=== PATIENT | female | born 1985 | race Caucasian/White ===

== ENCOUNTER → 2019-12-11 13:46 | Outpatient (CLI) | payer OTHER, SELFPAY ==
[2019-12-14 16:08] LABS: AFP, Serum 99.7 ng/mL (.); Estriol, Free 1.62 ng/mL (.); Inhibin A, Dimeric 74.73 pg/mL (.); Inhibin A, MoM 0.44 (.); Maternal Ethnicity Caucasian (.); Maternal Weight 147 lbs (.); Number of Fetuses No (.); OSBR Risk 1 IN 144 (.); Results Report (.); hCG, MoM 0.37 (.); hCG, Serum 14453 mIU/mL (.)
[2019-12-16 14:05] LABS: Test Results *Screen Positive* (.)
== END ==
PROVIDERS: Referring Provider Family Medicine; Visit Provider Family Medicine
DX: Z34.90 Encounter for supervision of normal pregnancy, unspecified, unspecified trimester (principal)
CPT/HCPCS: 36415; 82105; 82677; 84702; 86336

== ENCOUNTER → 2020-01-01 15:17 | Outpatient (CLI) | payer OTHER, SELFPAY ==
--- NOTE | 2020-01-01 15:19 | DI.US.S_ITS ---
PROCEDURE: US OB >= 14 WEEKS FETUS INDICATIONS: ANATOMIC SURVEY OUTSIDE/PRIOR DATING DATA: Last menstrual period (LMP): 07/29/2019 LMP-based estimated date of delivery (MARILY): 05/24/2020 First dating scan (date and location): 01/01/2020 Estimated date of delivery (MARILY) from first dating scan: 05/19/2020 TECHNIQUE: Real-time scanning was performed of the fetus, with image documentation and biometric measurements. Endovaginal scanning: Not performed COMPARISON: None. FINDINGS: General: A single living intrauterine gestation is present. Presentation: Breech. Placenta: Placental position is 11.6, without previa. Amniotic fluid index: 11.6 cm, normal range is 5-24 cm. heart rate: 152 beats per minute. Maternal cervical canal: 4.4 cm long. Normal lower limit is 2.5 cm. biometrics: Biparietal diameter: 4.6 cm. 20 weeks 0 days. Head circumference: 18.0 cm. 20 weeks 3 days. Abdominal circumference: 19.4 cm. 19 weeks 4 days. Femur length: 3.4 cm. 20 weeks 4 days. Estimated gestational age from initial scan: not applicable. Composite gestational age from present scan: 20 weeks 1 day Estimated weight and percentile: 329 g +/-49 g. 81 percentile. Measurement variability for biometric dating: +/- 7 days from 14 weeks to 15 weeks 6 days gestation, +/- 10 days from 16 weeks to 21 weeks 6 days gestation, +/- 2 weeks from 22 weeks to 27 weeks 6 days gestation, +/- 3 weeks for 28 weeks gestation or later. weight reference: 4500 g or EFW >90/95% is considered macrosomia or large for gestational age. EFW <10% is small for gestational age. EFW 5% or less is considered intra-uterine growth restriction. Anatomic survey: Neuro: Ventricles are non-dilated at less than 10 mm. Cisterna magna is normal at 3-11 mm. Cerebellum is normal in size and morphology. Nuchal skin fold: Normal at less than 6 mm between 14-21 weeks gestational age. Face: Nose and lips, facial profile are normal. Spine: No evidence for spina bifida. Heart: 4-chambered heart is present, with normal ventricular outflow tracts. Diaphragm: Diaphragm is intact. Stomach: Left-sided stomach is present. Kidneys: No hydronephrosis. Normal is less than 5 mm in 2nd trimester, less than 7 mm in 3rd trimester. Cord: 3-vessel cord has orthotopic insertion. Bladder: Normal in size. Extremities: All 4 extremities identified. The feet and ankles are not well seen due to position. IMPRESSION: 1. Acharya living intrauterine at 20 weeks 1 day based on today's ultrasound. The fetus is in the 81st percentile for weight. 2. Normal placenta and amniotic fluid. 3. Normal visualized structures. The feet and ankles of both lower legs are not well seen due to position. Otherwise complete anatomic survey. -A follow-up OB ultrasound should be considered. Dictated by: Balta Littlejohn M.D. on 01/01/2020 at 16:59 Approved by: Balta Littlejohn M.D. on 01/01/2020 at 17:05
== END ==
PROVIDERS: PCP Family Medicine; Referring Provider Family Medicine; Visit Provider Family Medicine
DX: Z34.02 Encounter for supervision of normal first pregnancy, second trimester (principal); Z3A.20 20 weeks gestation of pregnancy
CPT/HCPCS: 76811

== ENCOUNTER → 2020-02-10 11:26 | Outpatient (CLI) | payer OTHER, SELFPAY ==
[2020-02-10 13:41] LABS: Hematocrit 35.2 % (36-46)
[2020-02-10 14:12] LABS: GTT (PREG) 1 Hour PP 50gm Dose 118 mg/dL (76-139)
== END ==
PROVIDERS: PCP Family Medicine; Referring Provider Family Medicine; Visit Provider Family Medicine
DX: Z34.02 Encounter for supervision of normal first pregnancy, second trimester (principal); Z3A.25 25 weeks gestation of pregnancy
CPT/HCPCS: 36415; 82950; 85014; 85018

== ENCOUNTER → 2020-04-27 12:20 | Outpatient (CLI) | payer OTHER, SELFPAY ==
[2020-04-28 11:35] LABS: Strep Grp B PCR NEG for Grp B Strep
== END ==
PROVIDERS: PCP Family Medicine; Visit Provider Family Medicine
DX: Z34.03 Encounter for supervision of normal first pregnancy, third trimester (principal); Z3A.36 36 weeks gestation of pregnancy
CPT/HCPCS: 87653

== ENCOUNTER 2020-04-29 09:07 | Outpatient (CLI) | payer OTHER, SELFPAY | END 2020-04-29 09:40 | disposition home or self-care (01) | LOC: LABOR 09:22 → OB 05-02 10:35 | PROVIDERS: PCP Family Medicine; Referring Provider Family Medicine; Visit Provider Family Medicine | DX: O28.1 Abnormal biochemical finding on antenatal screening of mother (principal); Z3A.36 36 weeks gestation of pregnancy | CPT/HCPCS: 59025; G0378; G0379 ==

== ENCOUNTER 2020-05-11 11:54 | Outpatient (CLI) | payer OTHER, SELFPAY | END 2020-05-11 13:00 | disposition home or self-care (01) | LOC: LABOR 12:57 → OB 05-12 08:29 | PROVIDERS: PCP Family Medicine; Referring Provider Family Medicine; Visit Provider Family Medicine | DX: O28.1 Abnormal biochemical finding on antenatal screening of mother (principal); Z3A.38 38 weeks gestation of pregnancy | CPT/HCPCS: 59025; G0378; G0379 ==

== ENCOUNTER 2020-05-14 09:21 | Inpatient (IN) | payer OTHER, SELFPAY ==
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
[2020-05-14] MEDS: LACTATED RINGERS 1,000 ML 100 ML IV ×3 (10:35→21:00)
[2020-05-14 10:38] LABS: Add Manual Diff / Slide Review NO; Basophils Absolute Auto 100 /uL (0-100); Basophils Percent Auto 0.7 % (0-2); Eosinophils Absolute Auto 0 /uL (0-450); Eosinophils Percent Auto 0.2 % (2-4); Hematocrit 40.7 % (36-46); Hemoglobin 13.4 g/dL (12.0-16.0); Lymphocytes Absolute Auto 1900 /uL (1100-4500); Lymphocytes Percent Auto 13.1 % (25-40); Mean Corpuscular HGB Conc 32.9 % (30-36); Mean Corpuscular Hemoglobin 27.8 PG (26-34); Mean Corpuscular Volume 84.5 fL (80-100); Monocytes Absolute Auto 700 /uL (0-900); Monocytes Percent Auto 5.1 % (3-14); Neutrophils Absolute Auto 11700 /uL (1500-7000); Neutrophils Percent Auto 80.9 % (50-75); Platelet Count 315 X10^3/uL (150-400); Red Blood Cell Count 4.82 X10^6/uL (4.0-5.2); Red Cell Distribution Width 14.2 % (11.6-14.8); White Blood Cell Count 14.5 X10^3/uL (4.5-11.0)
[2020-05-14 11:07] LABS: COVID19 -Nasal RAPID Negative (Negative)
[2020-05-14 11:43] VITALS: BP 110/60
[2020-05-14] MEDS: OXYTOCIN PREMIX 30 UNIT/500 ML PLAST..BAG IV (15:25)
[2020-05-14] MEDS: FENT 2MCG/ML BUPIV 0.125% EPI 200 MCG/100 ML PLAST..BAG 8 MCG EPIDURAL (17:39)
--- NOTE | 2020-05-14 17:45 | PM.OBPNLAB ---
Date/Time Date Patient Seen: 05/14/20 Time Patient Seen: 17:46 Pain Control Pain control: epidural Pelvic Exam Dilation (cm): 10 Effacement (%): 100 station: +1 Amniotic membrane status: Ruptured Contractions Monitor mode: External Pitocin rate (mU/min): 1 Contraction frequency (min): 3 Contraction pattern: Irregular Contraction intensity: Strong/Firm Status status: Category l Heart Rate Baseline: 130 Monitor Accelerations: Present Monitor Decelerations: Variable Monitor Variability: Moderate Assessment and Plan Comments: 35yo at 38w4d presenting in active labor. Did have positive quad screen for spina bifida, with normal f/u ultrasounds. No other complications with . Rh positive, GBS negative. Pt with appropriate cervical change throughout labor. Now has been pushing for 3 hours, with relatively minimal descent, but also minimal caput. Pushing overall not terribly effective. Baby feels asynclitic as well. Pt did have repetitive deep variable decels earlier, that resolved with position changes. Baby only tolerates pushing in squatting/hands and knees position, which the pt can accomplish despite epidural. Will continue to monitor closely. Pt would like to continue pushing without assist at this time. At this point, high likelihood of requiring operative vaginal delivery vs . - GBS negative, no prophylaxis indicated - Epidural in place for pain control
--- NOTE | 2020-05-14 18:44 | PM.PREOP ---
Pre-operative Note COVID-19 COVID-19 status: Negative Result date/Date tested (Pos, Neg/Pending): 05/14/20 Interval Note History & Physical reviewed/Exam performed by Physician: Yes Changes to H&P: No
--- NOTE | 2020-05-14 19:16 | PM.OBPNLAB ---
Date/Time Date Patient Seen: 05/14/20 Time Patient Seen: 06:40 Pain Control Pain control: tolerating well and epidural Pelvic Exam Dilation (cm): 10 Effacement (%): 100 station: +1 Amniotic membrane status: Ruptured Contractions Monitor mode: External Pitocin rate (mU/min): 2 Contraction frequency (min): 3 Contraction pattern: Irregular Contraction intensity: Strong/Firm Status status: Category l Heart Rate Baseline: 130 Monitor Accelerations: Present Monitor Decelerations: Variable Monitor Variability: Moderate Assessment and Plan Comments: 35yo at 38w4d presenting in active labor. Did have positive quad screen for spina bifida, with normal f/u ultrasounds. No other complications with . Rh positive, GBS negative. Pt with appropriate cervical change throughout labor. Now has been pushing for 4 hours, with relatively minimal descent, but also minimal caput. Pushing overall not terribly effective. Baby feels asynclitic as well. Baby still not tolerating pushing in supine position, even on sides. Discussed risks vs benefits of operative vaginal delivery, with concern for shoulder dystocia and possible need for urgent due to hear tones. Pt in agreement with recommendation for primary for failure to descend. Risks of surgery discussed including but not limited to bleeding/hemorrhage, infection, injury to organs including bowel/bladder, and injury to fetus. Pt is agreeable to blood transfusion if medically indicated. Consent was signed and placed in the chart. Will receive 2g Ancef prior to delivery.
[2020-05-14] MEDS: CEFAZOLIN 2 GM/100 ML FROZ.PIGGY IV (19:30)
--- NOTE | 2020-05-14 19:57 | SUR.OPER ---
Supine on Padded OR bed, head on pillow, safety belt at thigh, arms secured on padded arm boards at <90 degrees abduction. Bump under right buttock. Legs uncrossed with pillow under knees, gel pad to heels, tape over blanket to lower legs.
[2020-05-14 20:26] VITALS: BP 86/30; PULSE 76; RESP 12; TEMP 36.2; O2SAT 96
[2020-05-14 20:27] VITALS: BP 108/54; PULSE 68; RESP 15; O2SAT 98
[2020-05-14 20:30] VITALS: BP 106/43; PULSE 68; RESP 10; O2SAT 96
[2020-05-14] MEDS: ONDANSETRON 4 MG/2 ML INJ IV (20:31)
--- NOTE | 2020-05-14 20:31 | PM.OP.1 ---
Operative Date/Time/Diagnoses Date of procedure: 05/15/20 Time of procedure: 19:30 Pre-op diagnosis: failure to descend Procedure & Clinicians Procedure: Primary Same procedure as scheduled: Yes Indications: Failure to descend Surgeon: Jordyn Posada Flight Operation Coordinator: Bonnie Bowles Click Yes if Unassisted: No Anesthesia Type: Epidural Operative Notes Findings: Normal uterus, ovaries, and tubes Closure Type: primary Specimen(s): none sent Applied: catheter Estimated Blood Loss (mL): 350 Blood products transfused: none Procedure in detail: PREOP DIAGNOSES: Intrauterine 38w4d with failure to descend GBS negative Rh positive POSTOPERATIVE DIAGNOSES: Same as above OPERATIVE COURSE: The patient was taken to the operating room where epidural anesthesia was bolused was placed. She was then prepared and draped in the normal sterile fashion in the dorsal supine position with a leftward tilt. Anesthesia was tested and found to be adequate. A Pfannensteil skin incision was then made with the scalpel and carried through to the underlying layer of fascia with the scalpel. The fascia was incised in the midline and the incision extended laterally with the Israel scissors. The superior aspect of the fascial incision was then grasped with Rhett clamps, elevated, and the underlying rectus muscles dissected off bluntly and sharply where needed. Attention was then turned to the inferior aspect of the incision which, in a similar fashion, was grasped, tented up with Rhett clamps, and the rectus muscle dissected off bluntly and sharply with Israel scissors. The rectus muscles were then in the midline, and the peritoneum was identified and entered bluntly. The peritoneal incision was then extended with good visualization of the bladder. The bladder blade was then inserted and the vesicouterine peritoneum identified, grasped with pick-ups and entered sharply with the Metzenbaum scissors. The incision was then extended laterally and the bladder flap created digitally. The bladder blade was then reinserted and the lower uterine segment incised in a transverse fashion with the scalpel. The uterine incision was then extended superolaterally by pulling superolaterally on both sides. The bladder blade was removed the infant's head was flexed out of OA position and delivered atraumatically. The nose and mouth were suctioned with bulb suction and the cord was clamped and cut. The was handed off to the waiting nursing staff. Cord blood was collected for Rh status. The placenta was then delivered with gentle cord traction. The uterus was then cleared of all clots and debris. The uterine incision was repaired with 2-O Chromic in a running, locked fashion. A second layer with O-Vicryl was used to obtain excellent hemostasis. Bladder flap was repaired with 2-O Chromic. The gutters were cleared of all clots. Hysterotomy was investigated and found to be hemostatic. The peritoneum was closed with 3-O Vicryl. The fascia was reapproximated with O-Vicryl in a running fashion. The subcutaneous tissue was reapproximated with 3-O Vicryl. The skin was closed with 4-O Vicryl. Throughout surgery, the surveyor instrument assistant was needed to help with retraction and fundal pressure to help with delivery of the infant. ROM APPEARANCE: Clear BABY A DELIVERY TIME: 1944 BABY A OUTCOME: Viable BABY A SEX: Male BABY A WEIGHT: 7lb0.7oz BABY A NUCHAL CORD: None BABY A # CORD VESSELS: 3 BABY A 1 MINUTE: 8 BABY A 5 MINUTES: 9 PLACENTA DELIVERY TIME: 1945 PLACENTAL DELIVERY TYPE: Spontaneous PLACENTA APPEARANCE: Intact SPONGE AND NEEDLE COUNTS: Correct x3. DRESSING: Aquacel ANTICOAGULATION: SCDs applied prior to Surgery: Yes Preop antibiotics given (see MAR). The patient was taken to recovery room having tolerated procedure well. Complications: none Post-operative Condition: stable Disposition: PACU Plan for aftercare: Normal /postoperative care
[2020-05-14 20:35] VITALS: BP 110/58; PULSE 64; RESP 13; O2SAT 95
[2020-05-14 20:40] VITALS: BP 108/56; PULSE 62; RESP 13; O2SAT 95
--- NOTE | 2020-05-14 20:46 | SUR.PHASEI ---
Patient to L&D in stable condition. Denies pain at this time. Resting comfortably with eyes closed. VSS. No bleeding noted, dressing clean, dry and intact.
[2020-05-14] MEDS: OXYCODONE/ACETAMINOPHEN 5/325 TABLET 1 TAB PO (22:18)
[2020-05-15] MEDS: KETOROLAC 30 MG/ML VIAL IV ×3 (02:03→14:38)
[2020-05-15 07:06] LABS: Hematocrit 33.2 % (36-46); Hemoglobin 10.8 g/dL (12.0-16.0)
[2020-05-15] MEDS: DOCUSATE 250 MG CAPSULE PO (08:28)
[2020-05-15] MEDS: PRENATAL VIT,CALC/IRON/FOLIC 1 TABLET 1 TAB PO (08:28)
[2020-05-15] MEDS: ACETAMINOPHEN 325 MG TABLET 650 MG PO ×3 (08:29→20:29)
--- NOTE | 2020-05-15 10:49 | P.PNOB_ITS ---
Subjective - OB Subjective Narrative: Patient reports that she is overall feeling well. She states that her pain is adequately controlled. She has not yet been out of bed as her Remy is still in place. She has not yet passing flatus. Her lochia is decreasing appropriately. She is breast-feeding with good latch and minimal nipple discomfort. Exam Vital Signs (past 8 hours): Oxygen Delivery Method Room Air Narrative Exam Narrative: General: No acute distress, sitting comfortably in bed, appears well CV: Regular rate and rhythm, no murmurs Respiratory: Clear to auscultation bilaterally Abdomen: Soft, appropriately tender, nondistended, normoactive bowel sounds, fundus firm below umbilicus, dressing clean/dry/intact Extremities: No edema Objective Labs Result Diagrams: 05/15/20 06:30 Labs: Laboratory Results - last 24 hr 05/14/20 05/14/20 05/15/20 09:45 11:13 06:30 Hgb 10.8 L Hct 33.2 L COVID-19 PCR Negative Blood Type O Positive Antibody Screen Negative Assessment & Plan Assessment and Plan (1) S/P : Status: Acute (2) Failure of descent in labor, delivered, current hospitalization: Status: Acute Plan Comments: 35-year-old postoperative day 1. Status post primary for failure to descend. Patient doing well. No concerns at this time. - Remy catheter to be removed today -encouraged ambulation -normal care - support Time Spent With Patient Time: Total time spent is greater than 50% in coordination of care (as docum ented) at patient's floor/unit and/or counseling patient: Time with patient: 15-24 minutes
[2020-05-15] MEDS: IBUPROFEN 600 MG TABLET PO (20:28)
[2020-05-16] MEDS: ACETAMINOPHEN 325 MG TABLET 650 MG PO ×2 (03:07→09:36)
[2020-05-16] MEDS: IBUPROFEN 600 MG TABLET PO ×3 (03:07→16:14)
[2020-05-16] MEDS: DOCUSATE 250 MG CAPSULE PO (09:35)
[2020-05-16] MEDS: PRENATAL VIT,CALC/IRON/FOLIC 1 TABLET 1 TAB PO (09:35)
--- NOTE | 2020-05-16 09:46 | PM.OBDS.1 ---
Discharge Providers Provider Date of admission: 05/14/20 09:21 Discharge Date: 05/16/20 Primary care physician: Donnell Palacio MD Consults: 05/14/20 21:25 Consult to Automatic Serging Machine Operator Routine Comment: Discharge provider: Jordyn Posada MD Summary Hospital Course Date Patient Seen: 05/16/20 Procedures: Primary Hospital Course: The pt presented in active labor. She received an epidural for pain control. She progressed to complete, but due to infrequent contractions pitocin was initiated. She had recurrent variable decels that resolved with position changes. She ultimately was only able to push on hands and knees or squatting for FHT to remain reassuring. The pitocin was turned on and off as possible based on FHT. After pushing for 4 hours with minimal descent, the decision was made to proceed with a primary for failure to descend. The surgery was without complications, and the pt delivered a viable baby boy. The pt tolerated surgery well. , there were no complications. At the time of discharge she was voiding, ambulating, and passing flatus without difficulty. Her pain was well controlled. She was with good latch. Her lochia was decreasing appropriately. She will f/u in 1 week for incision check. Peripartum Data Delivery Method: Section Procedures: Primary complications: none Rainbow 1: Gender: Male Disposition of : home Discharge Diagnosis (1) S/P : Status: Acute (2) Failure of descent in labor, delivered, current hospitalization: Status: Acute Status at Discharge Cognitive/behavioral status at discharge: oriented Functional status at discharge: independent ambulation Overall status at discharge: patient is progressing back to baseline Time Spent with Patient Time attestation: Total time spent providing and/or coordinating discharge services: Objective Labs Result Diagrams: 05/15/20 06:30 Exam Vital Signs (past 8 hours): Oxygen Delivery Method Room Air Narrative Exam Narrative: Gen: NAD, sitting comfortably in bed, appears well CV: RRR, no murmurs Resp: clear to auscultation bilaterally Abd: soft, appropriately tender, dressing c/d/i, fundus firm and below umbilicus, no distention Ext: no edema Discharge Plan Discharge Plan Patient Disposition: Home Discharge orders & Medications Prescriptions: New acetaminophen 325 mg Tablet 650 mg PO Q6HR PRN (Reason: Fever/Mild Pain (1-3)) Qty: 30 RF: 0 ibuprofen 600 mg Tablet 600 mg PO Q6HR PRN (Reason: Fever/Mild Pain (1-3)) Qty: 30 RF: 0 docusate sodium 250 mg Capsule 250 mg PO DAILY Qty: 30 RF: 0 Continued prenat.vits,jose,[id number] Tablet 1 tab PO DAILY RF: 0 No Action oxycodone-acetaminophen 5-325 mg tablet 1 tab PO Q4HR PRN (Reason: Pain, Moderate (4-6)) Qty: 20 RF: 0 Follow up/Referrals: Donnell Palacio MD [Primary Care Provider] - 05/23/20 10:15 am (Please follow up with Dr. Palacio on May 23 at 1015 wit a 1000 check in time. Please call for questions/concerns or need to reschedule.) Visit Report/Discharge Packet Stand Alone Forms: Discharge: Care Visit Report Forms: Patient Portal/API, Stroke Signs & Symptoms Discharge Data Primary Care Provider: Donnell Palacio Discharges patient from system. Discharge Date/Time: 05/16/20 16:30
[2020-05-16] MEDS: OXYCODONE/ACETAMINOPHEN 5/325 TABLET 1 TAB PO ×2 (10:28→16:15)
[2020-05-16 14:36] VITALS: BP 107/58; PULSE 56; RESP 16; TEMP 36.8
== END 2020-05-16 16:30 | disposition home or self-care (01) | DRG 786 ==
PROVIDERS: Admitting Provider Family Medicine; PCP Family Medicine; Referring Provider Family Medicine; Visit Provider Family Medicine
PROC: 10D00Z1 Extraction of Products of Conception, Low, Open Approach (ICD-10-PCS; CPT 59514; principal; 2020-05-14 19:00)
DX: O64.8XX0 Obstructed labor due to other malposition and malpresentation, not applicable or unspecified (principal); O60.14X0 Preterm labor third trimester with preterm delivery third trimester, not applicable or unspecified; Z3A.38 38 weeks gestation of pregnancy; Z37.0 Single live birth; Z01.812 Encounter for preprocedural laboratory examination; Z20.828 Contact with and (suspected) exposure to other viral communicable diseases
CPT/HCPCS: 01967; 01968; 36415; 59050; 59510; 59514; 59515; 85014; 85018; 85025; 86850; 86900; 86901; 87635; G0379; J0690; J1885; J2274; J2405; J2590

== ENCOUNTER 2021-02-09 07:30 | Outpatient (RCR) | payer OTHER, SELFPAY ==
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
--- NOTE | 2020-12-02 14:56 | PT.OPPOC ---
Physical, Occupational & Speech Therapy At [facility] Current Diagnoses Pelvic and perineal pain (12/02/20) Visit Care Team Role Provider Type Matteo Oh MD Attending Provider Non-Staff Primary Care Provider Referring Provider Specialty: Family Practice Address: [address] [place] [address], [id number] Email: Plan Of Care PT-OP-T Assessment and Plan Start: 11/22/20 15:32 Freq: Status: Active Protocol: Document 12/02/20 08:15 AMB (Rec: 12/02/20 14:54 AMB [email or web address]) Physical Therapy Assessment Rehab Potential Rehabilitation Potential Good Evaluation Complexity Number of Personal Factors/Comorbidities 1-2 Number of Body Systems Impaired 3 Clinical Presentation at Evaluation Evolving Impairments Impairments Activity Tolerance,Functional Activities,Pain,Strength Goals Two Impairment Pelvic floor tension Short Term Goal (STG) Pt will tolerate biofeedback assessment of pelvic floor to instruct in pelvic floor relaxation and strengthening as needed. 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 LTG Duration 12 weeks One Impairment [place] STG Duration 4 weeks Cover Mat Machine Operator Goal (LTG) Nicolasa will participate in the intercourse of her choice with pain of 3/10 or less. LTG Duration 12 weeks Assessment Summary Assessment Nicolasa attends physical therapy for dyspareunia that started during with the context of chronic LBP and SI instability prior to . She is now 6 months post and the painful intercourse continues although maybe is slightly better if she uses lots of lubricant and is very careful with positioning. She has been using a want to do self trigger point release and has been working in hip stretching but continues to have pain. Upon exam her superficial pelvic floor was in more spasm than the deeper musculature. She did have diastasis recti and given her SI dysfunction her pelvic floor is spasming due to increased instability. She will therefore benefit from pelvic floor relaxation in addition to core and SI stabilization. Physical Therapy Plan Frequency and Duration Frequency of Treatment 1x/Week Duration of Treatment 12 weeks Plan of Care Start Date 12/02/20 Plan of Care End Date 02/24/21 Therapeutic Interventions Therapeutic Interventions Home Exercise Program,Joint Mobilizations,Manual Therapy, Neuromuscular Re-education, Therapeutic Activities, Therapeutic Exercises Modalities Biofeedback,Electric Stimulation Next Visit Focus/Plan Next Note Type Treatment Note Next Visit Plan Check pelvic floor strength as pt arrived late and did not check at eval. Asked pt to wear SI Belt to see if improved SI Stability helped pelvic floor relax, recheck on this. Plan of Care Dates Plan of Care Start Date 12/02/20 Plan of Care End Date 02/24/21 Electronically Signed by: Renu Bryan, PT 12/02/20 0665 Please Sign and Return: I have reviewed this Plan of Care and certify that the skilled therapy services above are required to meet the patient?s needs. Physician Signature Date Printed Name and Credentials Clinical Instructor Signature Printed Name and Credentials
--- NOTE | 2020-12-09 14:28 | PT.OTN ---
Current Diagnoses Pelvic and perineal pain (12/09/20) Physical Therapy Treatment Note PT-OP-A Visit Information Start: 11/22/20 15:32 Freq: Status: Active Protocol: Document 12/09/20 12:45 AMB (Rec: 12/09/20 13:23 AMB [id number]) Out-Patient Physical Therapy Visit Information Visit Information Visit Type Treatment Note Visit Start Time 12:45 Visit Stop Time 13:30 Total Visit Minutes 45 Visit Number 2 PT-OP-B Current Condition Start: 11/22/20 15:32 Freq: Status: Active Protocol: Document 12/02/20 08:15 AMB (Rec: 12/02/20 09:00 AMB [id number]) Current Condition History of Current Condition Onset Date Summer 2019 Current Complaints dyspareunia History of Current Condition History of low back pain/SI pain. Delivered baby in April via - extended pushing 3-4 hours. Pain with intercourse during . At 6 months post intercourse is slightly better, but still painful. Tenderness at scar remains. 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 PT-OP-F Manual Assessment Start: 11/22/20 15:32 Freq: Status: Active Protocol: Document 12/02/20 08:15 AMB (Rec: 12/02/20 14:54 AMB [email or web address]) Manual Assessments Other Manual Assessments Other Manual Assessments L ASIS and lateral malleolus high in supine. Stork test and forward bend test negative . 2 finger width diastasis recti above umbilicus, 3 finger width below PT-OP-I Pelvic Floor Start: 11/22/20 15:32 Freq: Status: Active Protocol: Document 12/02/20 08:15 AMB (Rec: 12/02/20 14:54 AMB [email or web address]) Pelvic Floor Assessment Urine Pelvic Floor Surgery Urinary Symptoms Pain Other Leakage Causes denies leaks Bowel Other Bowel Symptoms mild urgency, denies constipation Pelvic Clock Pelvic Clock Other Most tenderness at introitus, liberty anteriorly. Did not palpate any prolapse. Mild tenderness bilat at obterator internus but not as severe as introitus. PT-OP-Q Treatments Start: 11/22/20 15:32 Freq: Status: Active Protocol: Document 12/09/20 12:45 AMB (Rec: 12/09/20 14:28 AMB [email or web address]) Neuro Re-Education Treatment Other Activities 1 Details sEMG Comments 5 sec contract 10 second relax PT-OP-T Assessment and Plan Start: 11/22/20 15:32 Freq: Status: Active Protocol: Document 12/09/20 12:45 AMB (Rec: 12/09/20 14:28 AMB [email or web address]) Physical Therapy Assessment Assessment Summary Assessment Pt felt SI belt irritated C- section scar. Instructed in self manual release and to relax pelvic floor without bearing down after kegel. Pt had 10ug at baseline, reduced to about 5-6 with focused relaxation after contraction. Physical Therapy Plan Next Visit Focus/Plan Next Note Type Treatment Note Next Visit Plan Pt is going on vacation for the next 6 weeks, will need to re-evaluate at return.
--- NOTE | 2021-01-27 14:11 | PT.OTN ---
Current Diagnoses Pelvic and perineal pain (01/27/21) Physical Therapy Treatment Note PT-OP-A Visit Information Start: 11/22/20 15:32 Freq: Status: Active Protocol: Document 01/27/21 13:15 AMB (Rec: 01/27/21 14:10 AMB [id number]) Out-Patient Physical Therapy Visit Information Visit Information Visit Type Treatment Note Visit Start Time 13:15 Visit Stop Time 14:00 Total Visit Minutes 45 Visit Number 3 PT-OP-B Current Condition Start: 11/22/20 15:32 Freq: Status: Active Protocol: Document 12/02/20 08:15 AMB (Rec: 12/02/20 09:00 AMB [id number]) Current Condition History of Current Condition Onset Date Summer 2019 Current Complaints dyspareunia History of Current Condition History of low back pain/SI pain. Delivered baby in April via - extended pushing 3-4 hours. Pain with intercourse during . At 6 months post intercourse is slightly better, but still painful. Tenderness at scar remains. 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 Aware of diastasis with laughing and rolling over PT-OP-F Manual Assessment Start: 11/22/20 15:32 Freq: Status: Active Protocol: Document 12/02/20 08:15 AMB (Rec: 12/02/20 14:54 AMB [email or web address]) Manual Assessments Other Manual Assessments Other Manual Assessments L ASIS and lateral malleolus high in supine. Stork test and forward bend test negative . 2 finger width diastasis recti above umbilicus, 3 finger width below PT-OP-I Pelvic Floor Start: 11/22/20 15:32 Freq: Status: Active Protocol: Document 12/02/20 08:15 AMB (Rec: 12/02/20 14:54 AMB [email or web address]) Pelvic Floor Assessment Urine Pelvic Floor Surgery Urinary Symptoms Pain Other Leakage Causes denies leaks Bowel Other Bowel Symptoms mild urgency, denies constipation Pelvic Clock Pelvic Clock Other Most tenderness at introitus, liberty anteriorly. Did not palpate any prolapse. Mild tenderness bilat at obterator internus but not as severe as introitus. PT-OP-Q Treatments Start: 11/22/20 15:32 Freq: Status: Active Protocol: Document 01/27/21 13:15 AMB (Rec: 01/27/21 14:10 AMB [id number]) Neuro Re-Education Treatment Other Activities 1 Details sEMG Comments baseline 3, max 19, added roll in roll out for pubic symphysis stabilization PT-OP-T Assessment and Plan Start: 11/22/20 15:32 Freq: Status: Active Protocol: Document 01/27/21 13:15 AMB (Rec: 01/27/21 14:10 AMB [id number]) Physical Therapy Assessment Goals Two Impairment Pelvic floor tension Short Term Goal (STG) Pt will tolerate biofeedback assessment of pelvic floor to instruct in pelvic floor relaxation and strengthening as needed. STG Duration 4 weeks Correction Goal (LTG) Nicolasa will be independent and consistent with a pelvic floor stretching program and core stabilization home program. LTG Duration 12 weeks One Impairment [place] STG Duration 4 weeks Employment Recruiter Goal (LTG) Nicolasa will participate in the intercourse of her choice with pain of 3/10 or less. LTG Duration 12 weeks Assessment Summary Assessment Pt with better (lower) resting tone with biofeedback today. Challenged by pelvic floor stability but able to bring resting tone back down apporpriately. Will need to continue to follow up on pain with intercourse. Physical Therapy Plan Next Visit Focus/Plan Next Note Type Treatment Note Next Visit Plan Recheck sensitivity, follow up on roll in roll out addition to HEP
--- NOTE | 2021-02-03 10:10 | PT.OTN ---
Current Diagnoses Pelvic and perineal pain (02/03/21) Physical Therapy Treatment Note PT-OP-A Visit Information Start: 11/22/20 15:32 Freq: Status: Active Protocol: Document 02/03/21 07:40 AMB (Rec: 02/03/21 08:18 AMB [id number]) Out-Patient Physical Therapy Visit Information Visit Information Visit Type Treatment Note Visit Start Time 07:30 Visit Stop Time 08:15 Total Visit Minutes 45 Visit Number 4 PT-OP-B Current Condition Start: 11/22/20 15:32 Freq: Status: Active Protocol: Document 12/02/20 08:15 AMB (Rec: 12/02/20 09:00 AMB [id number]) Current Condition History of Current Condition Onset Date Summer 2019 Current Complaints dyspareunia History of Current Condition History of low back pain/SI pain. Delivered baby in April via - extended pushing 3-4 hours. Pain with intercourse during . At 6 months post intercourse is slightly better, but still painful. Tenderness at scar remains. Treatment Goals Patient/Caregiver Goals pain free intercourse Prior Functional Status Baseline Function- ADL's Independent Baseline Function- Mobility Independent Current Functional Impairments (Reported) Functional Limitations- ADL's Pain with insertion during intercourse Personal Factors Other Personal Factors That May Effect Hx low back pain, neck pain, Therapy/Recovery SI instability (had to wear SI belt 20 weeks in 2016) PT-OP-C Subjective Start: 11/22/20 15:32 Freq: Status: Active Protocol: Document 02/03/21 07:40 AMB (Rec: 02/03/21 08:18 AMB [id number]) OP-PT Subjective Patient Comments Patient Comments Overall feeling generaly better PT-OP-F Manual Assessment Start: 11/22/20 15:32 Freq: Status: Active Protocol: Document 12/02/20 08:15 AMB (Rec: 12/02/20 14:54 AMB [email or web address]) Manual Assessments Other Manual Assessments Other Manual Assessments L ASIS and lateral malleolus high in supine. Stork test and forward bend test negative . 2 finger width diastasis recti above umbilicus, 3 finger width below PT-OP-I Pelvic Floor Start: 11/22/20 15:32 Freq: Status: Active Protocol: Document 12/02/20 08:15 AMB (Rec: 12/02/20 14:54 AMB [email or web address]) Pelvic Floor Assessment Urine Pelvic Floor Surgery Urinary Symptoms Pain Other Leakage Causes denies leaks Bowel Other Bowel Symptoms mild urgency, denies constipation Pelvic Clock Pelvic Clock Other Most tenderness at introitus, liberty anteriorly. Did not palpate any prolapse. Mild tenderness bilat at obterator internus but not as severe as introitus. PT-OP-Q Treatments Start: 11/22/20 15:32 Freq: Status: Active Protocol: Document 02/03/21 09:59 AMB (Rec: 02/03/21 10:09 AMB [email or web address]) Manual Therapy Treatment Soft Tissue Mobilization 2 Body Location scar Mobilization Type Instrument Assisted Intensity/Depth Superficial Body Position Hooklying 1 Body Location pelvic floor Mobilization Type Myofascial Release,Strumming, Sustained Pressure Intensity/Depth Moderate Body Position Hooklying PT-OP-T Assessment and Plan Start: 11/22/20 15:32 Freq: Status: Active Protocol: Document 02/03/21 09:59 AMB (Rec: 02/03/21 10:09 AMB [email or web address]) Physical Therapy Assessment Assessment Summary Assessment Pt benefited from cupping at C -section and was instructed in how to do so at home. Tension at introitus but this did dissapate with manual release. Physical Therapy Plan Next Visit Focus/Plan Next Note Type Treatment Note Next Visit Plan Recheck roll in roll out, progress stabilization exercises
--- NOTE | 2021-02-09 08:52 | PT.OTN ---
Current Diagnoses Pelvic and perineal pain (02/09/21) Physical Therapy Treatment Note PT-OP-A Visit Information Start: 11/22/20 15:32 Freq: Status: Active Protocol: Document 02/09/21 07:30 AMB (Rec: 02/09/21 08:51 AMB [id number]) Out-Patient Physical Therapy Visit Information Visit Information Visit Type Treatment Note Visit Start Time 07:30 Visit Stop Time 08:15 Total Visit Minutes 45 Visit Number 5 PT-OP-B Current Condition Start: 11/22/20 15:32 Freq: Status: Active Protocol: Document 12/02/20 08:15 AMB (Rec: 12/02/20 09:00 AMB [id number]) Current Condition History of Current Condition Onset Date Summer 2019 Current Complaints dyspareunia History of Current Condition History of low back pain/SI pain. Delivered baby in April via - extended pushing 3-4 hours. Pain with intercourse during . At 6 months post intercourse is slightly better, but still painful. Tenderness at scar remains. Treatment Goals Patient/Caregiver Goals pain free intercourse Prior Functional Status Baseline Function- ADL's Independent Baseline Function- Mobility Independent Current Functional Impairments (Reported) Functional Limitations- ADL's Pain with insertion during intercourse Personal Factors Other Personal Factors That May Effect Hx low back pain, neck pain, Therapy/Recovery SI instability (had to wear SI belt 20 weeks in 2016) PT-OP-C Subjective Start: 11/22/20 15:32 Freq: Status: Active Protocol: Document 02/09/21 07:30 AMB (Rec: 02/09/21 08:51 AMB [id number]) OP-PT Subjective Patient Comments Patient Comments No intercourse since last visit, felt fine after treatment, but has been having SI pain when waking up. Rolling over in bed is painful . Worse on the left. PT-OP-F Manual Assessment Start: 11/22/20 15:32 Freq: Status: Active Protocol: Document 12/02/20 08:15 AMB (Rec: 12/02/20 14:54 AMB [email or web address]) Manual Assessments Other Manual Assessments Other Manual Assessments L ASIS and lateral malleolus high in supine. Stork test and forward bend test negative . 2 finger width diastasis recti above umbilicus, 3 finger width below PT-OP-I Pelvic Floor Start: 11/22/20 15:32 Freq: Status: Active Protocol: Document 12/02/20 08:15 AMB (Rec: 12/02/20 14:54 AMB [email or web address]) Pelvic Floor Assessment Urine Pelvic Floor Surgery Urinary Symptoms Pain Other Leakage Causes denies leaks Bowel Other Bowel Symptoms mild urgency, denies constipation Pelvic Clock Pelvic Clock Other Most tenderness at introitus, liberty anteriorly. Did not palpate any prolapse. Mild tenderness bilat at obterator internus but not as severe as introitus. PT-OP-Q Treatments Start: 11/22/20 15:32 Freq: Status: Active Protocol: Document 02/09/21 07:30 AMB (Rec: 02/09/21 08:51 AMB [id number]) Therapeutic Exercises Supine Exercises 2 Supine Exercise Name hip flexor stretch Reps/Minutes 30x2 1 Supine Exercise Name table top with TA and PF Comments increased hip flexor tension Other Exercises 1 Other Exercise Name quadruped UE flexion, then LE extension Comments with PF and TA PT-OP-T Assessment and Plan Start: 11/22/20 15:32 Freq: Status: Active Protocol: Document 02/09/21 07:30 AMB (Rec: 02/09/21 08:51 AMB [id number]) Physical Therapy Assessment Goals Two Impairment Pelvic floor tension Short Term Goal (STG) Pt will tolerate biofeedback assessment of pelvic floor to instruct in pelvic floor relaxation and strengthening as needed. STG Duration [place] Long-Term Goal (LTG) Nicolasa will be independent and consistent with a pelvic floor stretching program and core stabilization home program. LTG Duration MET One Impairment [place] Long-Term Goal (LTG) Nicolasa will participate in the intercourse of her choice with pain of 3/10 or less. LTG Duration MET Assessment Summary Assessment Nicolasa continues to have SI instability that plays a role in her historically overactive pelvic floor but this has significantly improved and should continue to improve with her HEP. She is discharged as her is deploying and she feels she will be able to independently manage her pain. Physical Therapy Plan Discharge Physical Therapy Discharge Reasons Goals Met Next Visit Focus/Plan Next Note Type Discharge Summary
== END 2021-02-09 13:03 | disposition home or self-care (01) ==
LOC: PHYS 07:30
PROVIDERS: PCP Family Medicine; Referring Provider Family Medicine; Visit Provider Family Medicine
DX: R10.2 Pelvic and perineal pain (principal)
CPT/HCPCS: 97110; 97112; 97140; 97162

== ENCOUNTER → 2021-12-01 16:50 | Outpatient (CLI) | payer OTHER, SELFPAY ==
--- NOTE | 2021-12-01 | DI.MRI.S_ITS ---
PROCEDURE: MR CERVICAL SPINE WO CON INDICATIONS: Cervicalgia TECHNIQUE: Noncontrast sagittal T1 spin echo and T2 fast spin echo, sagittal STIR, foraminal oblique sagittal T2 fast spin echo, and axial gradient echo or T2 fast spin echo through the cervical spine. COMPARISON: None. FINDINGS: Image quality: Excellent. Alignment and Curvature: There is loss of normal cervical lordosis. Bone Marrow: Marrow demonstrates normal overall signal. Mild reactive signal throughout the endplates of the cervical spine. Spinal Cord: Visualized spinal cord has normal size and signal. No cerebellar tonsillar herniation. Paraspinous Soft Tissues: No paravertebral masses. Prevertebral soft tissues are normal in thickness. C2-C3: Normal appearance. C3-C4: Mild disc height loss and desiccation. Mild diffuse disc bulge. Congenital canal stenosis. Mild facet and uncovertebral hypertrophy bilaterally. Moderate canal stenosis. Mild bilateral foraminal stenosis. C4-C5: Mild disc height loss and desiccation. Mild diffuse disc bulge. Congenital canal stenosis. Mild facet and uncovertebral hypertrophy bilaterally. Moderate canal stenosis. Mild bilateral foraminal stenosis. C5-C6: Mild disc height loss and desiccation. Mild diffuse disc bulge. Mild facet and uncovertebral hypertrophy bilaterally. Congenital canal stenosis. Moderate canal stenosis. Mild bilateral foraminal stenosis. C6-C7: Mild disc height loss and desiccation. Mild diffuse disc bulge with superimposed left far lateral broad-based protrusion. Congenital canal stenosis. Mild facet and uncovertebral hypertrophy bilaterally. Moderate canal stenosis. Moderate left and mild right foraminal stenosis. C7-T1: Normal appearance. IMPRESSION: 1. Diffuse congenital canal stenosis with superimposed disc and facet disease, as well as uncovertebral hypertrophy. 2. Multilevel canal stenoses, worst at C3-C4, C4-C5, C5-C6, and C6-C7 where there are moderate canal stenosis. 3. Multilevel foraminal stenoses, worst at C6-C7 on the left where there is moderate foraminal stenosis. Dictated by: Vern Robledo M.D. on 12/04/2021 at 8:45 Approved by: Vern Robledo M.D. on 12/04/2021 at 10:09
== END ==
PROVIDERS: PCP Family Medicine; Referring Provider Family Medicine; Visit Provider Family Medicine
DX: M50.21 Other cervical disc displacement, high cervical region (principal); M48.02 Spinal stenosis, cervical region
CPT/HCPCS: 72141